=== PATIENT | female | born 1990 | race African-American/Black ===

== ENCOUNTER 2022-10-24 12:52 | Outpatient (REF) | payer MEDICARE, MEDICAID, SELFPAY ==
[2022-10-24 17:48] LABS: Urine Cytology See Pathology rpt
== END 2022-10-24 12:53 | disposition home or self-care (01) ==
LOC: HO.LAB 12:52
PROVIDERS: PCP Hospitalist; Visit Provider Nurse Practitioner Family
DX: R32 Unspecified urinary incontinence (principal)
CPT/HCPCS: 51798; 88112; 99202

== ENCOUNTER 2022-12-05 15:20 | Outpatient (REF) | payer MEDICARE, MEDICAID, SELFPAY ==
--- NOTE | ~2022-12-05 | US_ITS ---
EXAMINATION: US RETROPERITONEAL COMPLETE (RENAL) CLINICAL INFORMATION: Unspecified urinary incontinence. COMPARISON: X-ray abdomen KUB 05/03/2018. TECHNIQUE: Real-time imaging of the kidneys and bladder. Technically limited study secondary to body habitus and limited mobility. FINDINGS: RIGHT KIDNEY: 10.9 x 6.3 x 6.7 cm (SAG x AP x TRV). The kidney is normal in size, contour, and echogenicity. Renal cortical thickness is normal. No calculi or focal parenchymal lesions. No hydronephrosis. LEFT KIDNEY: 9.3 x 5.3 x 5.4 cm (SAG x AP x TRV). The kidney is normal in size, contour, and echogenicity. Renal cortical thickness is normal. No calculi or focal parenchymal lesions. No hydronephrosis. BLADDER: Well distended and normal. Bilateral ureteral jets are demonstrated. Prevoid bladder volume is 312 mL. Postvoid bladder volume is 17.8 mL. US/US retroperitoneal comp IMPRESSION: Unremarkable sonographic imaging of the kidneys and bladder.
== END 2022-12-05 15:21 | disposition home or self-care (01) ==
LOC: HO.US 15:20
PROVIDERS: PCP Hospitalist; Visit Provider Nurse Practitioner Family
DX: R32 Unspecified urinary incontinence (principal); N39.0 Urinary tract infection, site not specified
CPT/HCPCS: 76770

== ENCOUNTER → 2022-12-14 09:43 | Outpatient (BNVA) | payer MEDICARE, MEDICAID, SELFPAY | PROVIDERS: PCP Hospitalist; Visit Provider Nurse Practitioner Family | DX: R32 Unspecified urinary incontinence (principal) | CPT/HCPCS: 51798; 99212 ==

== ENCOUNTER 2023-01-17 11:57 | Outpatient (REF) | payer MEDICARE, MEDICAID, SELFPAY | END 2023-01-17 11:58 | disposition home or self-care (01) | LOC: HO.MAMMO 11:57 | PROVIDERS: Visit Provider Hospitalist | DX: Z13.89 Encounter for screening for other disorder (principal) ==

== ENCOUNTER 2023-08-31 08:51 | Outpatient (AMB) | payer MEDICARE, MEDICAID, SELFPAY ==
--- NOTE | 2023-08-31 09:01 | MHC.OFFVIS ---
Intake Intake Visit Reasons: 6 month follow up Intake Note: Patient is present for PVR/recurrent uti/ urinary incontinence Urology Medications: D/C Oxybutynin Blood Thinner: none PVR: 0ml's Clinical Rehab Specialist Required: No Accompanied by: Unknown Allergies No Known Allergies Allergy (Verified 08/31/23 09:41) Medication List - Last Reconciled 08/31/23 by JOON Saldaña acetaminophen 650 mg PO Q6H PRN atorvastatin 10 mg PO DAILY cholecalciferol (vitamin D3) 50 mcg PO DAILY clozapine (Clozaril) 50 mg PO DAILY diazepam 10 mg PO BID PRN docusate sodium (Dulcolax Stool Softener (docusate)) 100 mg PO BID fluphenazine decanoate mg IM hydroxyzine HCl 50 mg IM ONCE PRN ibuprofen 600 mg PO ONCE PRN lacosamide mg PO lactulose 10 grams PO DAILY levetiracetam 750 mg PO BID levothyroxine 150 mcg PO DAILY lithium carbonate 150 mg PO DAILY lithium carbonate 300 mg PO DAILY loratadine 10 mg PO DAILY lorazepam 2 mg IM DAILY PRN metformin 500 mg PO DAILY mineral oil-isopropyl myristat (Minerin lotion) 1 appl topical TID-QID PRN multivitamin 1 tab PO DAILY paliperidone palmitate (Invega Sustenna) mg IM phenobarbital 64.8 mg PO DAILY sennosides (senna) 8.6 mg PO DAILY PRN sodium phosphates 19-7 gram/118 mL (Fleet Enema) 118 mL [place] DAILY PRN valproic acid (as sodium salt) mg PO HPI HPI Comments History of Present Illness Details Ileana is a pleasant 32-year-old female patient of Dr. Wood who resides at [facility] and is accompanied by rolling machine operator Sruthi today. Patient has a past medical history of schizoaffective bipolar disorder, moderate intellectual disability, epilepsy, diabetes type 2, hypertension, GERD, hyperlipidemia, delusional disorder, and impulse disorder. She presents to the office today for follow-up of urinary incontinence. When asked she reports to be doing and feeling well. She discusses at length her attempt in losing weight. When asked she denies any bothersome urinary issues or concerns. She denies having had any recent incontinent episodes. Previous workup has included a retroperitoneal ultrasound noting bilateral kidneys are normal in size, contour, and echogenicity. No calculi, lesions or hydronephrosis noted bilaterally. Bladder is well distended and normal. Prevoid bladder volume is 312 mL. Postvoid bladder volume 17.8 mL. Unremarkable imaging of the kidneys and bladder. Patient had previously trialed oxybutynin however had no improvement in urinary symptoms in related urinary incontinence to acedia. Discussed and stressed the importance to continue utilizing bathroom when needed/timed scheduled voiding. Discussed and stressed the importance of weight management in relation to urinary incontinence as well as managing diabetes as this could also be contributing to urinary symptoms. She otherwise denies dysuria, flank pain, hematuria, fever, and or chills. In office urinalysis results reviewed with the patient and care worker today. Patient reports she currently has her menses. PVR-0ml's. [facility] Medical History Personal history of (corrected) congenital malformations of heart and circulatory system Unspecified intracranial injury with loss of consciousness of unspecified duration, sequela Slow transit constipation Other insomnia Impulse disorder, unspecified Delusional disorders Other hyperlipidemia Obesity, unspecified Other specified hypothyroidism Other specified disorders of binocular movement Muscle weakness (generalized) Low back pain, unspecified Pain in unspecified knee Disorder of urea cycle metabolism, unspecified Myopia, bilateral Nonscarring hair loss, unspecified Gastro-esophageal reflux disease without esophagitis Essential (primary) hypertension Type 2 diabetes mellitus without complications Headache, unspecified Generalized idiopathic epilepsy and epileptic syndromes, not intractable, without status epilepticus Moderate intellectual disabilities Prader-Willi syndrome Schizoaffective disorder, bipolar type Review of Systems Const Reports as per HPI Eyes Reports no additional complaints ENT Reports no additional complaints Card Reports no additional complaints Resp Reports no additional complaints GI Details: Patient reports issues with constipation and taking medication to assist with this. Reports as per HPI Musc Reports no additional complaints Neuro Details: Patient with a history of epilepsy and moderate intellectual disability Psych Reports as per HPI Endo Reports as per HPI Physical Exam Const General: cooperative, healthy appearing, comfortable, no acute distress, well developed, alert and awake Nutritional Appearance: overweight Orientation/consciousness: patient oriented x3 Limitations: no limitations HEENT Head: Yes normal to inspection, Yes normocephalic and Yes atraumatic Ears: hearing grossly normal bilaterally Neck Neck: Yes normal visual inspection and Yes trachea midline Chest Chest palpation & inspection: normal inspection of the chest Resp Effort & Inspection: normal respiratory effort and able to speak in complete sentences Cardio Rate: regular rate General: Yes no CVA tenderness Back/Spine/Pelvis Back: no CVA tenderness Skin General skin exam: no rashes or lesions noted Neuro General: patient oriented x3 Extrem General: Yes normal to inspection Psych Appearance: grossly normal and well kempt Speech and movement: Clear speech present, Slowed speech present (Psych) and Slowed movement present (Neuro) Affect: Other affect and mood findings present (flat) Attitude: cooperative Insight: Fair insight present (Psych) Judgement: Fair judgement present (Psych) Office Procedures Post Void Residual Post Residual Void Post Void Residual (PVR): 0 91001-[id number] Void Residual by ultrasound Results AMB Urinalysis, Automated UA Leukoctes 15 Jayson/uL Last Edit by [employer] on 08/31/23 09:27 UA Nitrite Negative Last Edit by [employer] on 08/31/23 09:27 UA Urobilinogen 0.2 mg/dL Last Edit by [employer] on 08/31/23 09:27 UA Protein 15 mg/dL Last Edit by [employer] on 08/31/23 09:27 UA pH 6.0 Last Edit by [employer] on 08/31/23 09:27 UA Blood 10 Tomy/uL Last Edit by [employer] on 08/31/23 09:27 UA Specific [place] 1.020 Last Edit by [employer] on 08/31/23 09:27 UA Ketone Positive Last Edit by [employer] on 08/31/23 09:27 UA Bilirubin 0 mg/dL Last Edit by [employer] on 08/31/23 09:27 UA Glucose 0 mg/dL Last Edit by [employer] on 08/31/23 09:27 Results Reviewed Results Reviewed: Laboratory Last Values Urine pH (Auto) 6.0 08/31/23 09:05 Specific [place] (Auto) 1.020 08/31/23 09:05 Urine Protein (Auto) 15 mg/dL 08/31/23 09:05 Glucose (UA)(Auto) 0 mg/dL 08/31/23 09:05 Urine Ketones (Auto) Positive 08/31/23 09:05 Urine Blood (Auto) 10 Tomy/uL 08/31/23 09:05 Urine Nitrite (Auto) Negative 08/31/23 09:05 Urine Bilirubin (Auto) 0 mg/dL 08/31/23 09:05 Urine Urobilinogen (Auto) 0.2 mg/dL 08/31/23 09:05 Leukocyte Esterase (Auto) 15 Jayson/uL 08/31/23 09:05 Assessment & Plan Assessment & Plan (1) Urinary incontinence: Code(s): R32 - Unspecified urinary incontinence Plan In office UA results communicated with patient, care worker, and consultation communication report PVR; 0ml's Discussed behavior modification with timed voiding/scheduled voiding/prompt voiding Discussed weight management and weight loss can assist with urinary symptoms of incontinence Follow up in 6 months with PVR; or sooner with any questions or concerns Orders: Orders AMB Urinalysis Automated Today Z13.9 - Encounter for screening, unspecified AMB Post Void Residual by ultrasound Today N39.0 - Urinary tract infection, site not specified Patient Instructions: The patient had an opportunity to ask questions regarding the treatment plan. All questions were answered. Physical exam, labs, and imaging were discussed and reviewed in detail. As well as risks, benefits, and discussion of treatment choices. No major barriers to understanding were identified. The patient expressed understanding and agreement with the above treatment plan. The patient was made aware they should contact our office by phone for worsening of their current condition, the appearance of new symptoms, or with any questions or concerns. Compliance is encouraged with any medications and follow up testing that is ordered. It is a privilege to be allowed the opportunity to participate in? your urological care.? Again, if you have any questions or concerns If you have any questions or concerns please do not hesitate to contact me. The office is [phone]. This note is constructed using voice recognition software. While every effort has been made to ensure accuracy medicaid biller errors may have been included. Yours sincerely, JOON Saldaña Coding Level of Care Code Est Pt Level 3 (33893) Diagnoses Urinary incontinence R32 CPT Codes Post Residual Void - PVR CPT Code: 89675-Djjx Void Residual by ultrasound ([id number])
== END 2023-08-31 09:50 | disposition home or self-care (01) ==
PROVIDERS: PCP Hospitalist; Visit Provider Nurse Practitioner Family
DX: Z13.9 Encounter for screening, unspecified (principal); R32 Unspecified urinary incontinence
CPT/HCPCS: 99213

== ENCOUNTER → 2023-08-31 08:51 | Outpatient (BNVA) | payer MEDICARE, MEDICAID, SELFPAY | PROVIDERS: PCP Hospitalist; Visit Provider Nurse Practitioner Family | DX: R32 Unspecified urinary incontinence (principal) | CPT/HCPCS: 51798; 81003; 99212 ==

== ENCOUNTER → 2024-03-03 09:33 | Outpatient (BNVA) | payer MEDICARE, MEDICAID, SELFPAY | PROVIDERS: PCP Hospitalist; Visit Provider Nurse Practitioner Family ==

== ENCOUNTER 2024-03-12 08:21 | Outpatient (REF) | payer MEDICARE, MEDICAID, SELFPAY ==
--- NOTE | ~2024-03-12 | CT_ITS ---
EXAMINATION: CT HEAD WITH/WITHOUT CONTRAST CLINICAL INFORMATION: Epilepsy. Brain tumor. COMPARISON: MR brain 03/19/2006. TECHNIQUE: Contiguous axial imaging was performed from the skull base to vertex before and after the administration of 100 mL of Omnipaque [address] examination was performed using dose optimization techniques as appropriate, variously including the following: *Automated exposure control *Adjustment of mA and/or kV according to patient size (this includes techniques or standardized protocols for targeted exams where dose is matched to indication/reason for exam; i.e. extremities or head) *Use of iterative reconstruction technique DLP: 1916 mGy-cm FINDINGS: There are chronic changes of a left craniotomy and there is a surgical cavity within the left frontal lobe. Postcontrast images reveal no abnormal mass or nodular enhancement at the margins of the surgical cavity.. There is no abnormal enhancement visualized elsewhere within the intracranial compartment. No intracranial mass effect or midline shift. Lateral and third ventricles are normal. No hydrocephalus. The calvarium and skull base are grossly intact. No mastoid or middle ear effusion. No active paranasal sinus disease. Globes and orbits are symmetric. CT/CT head/brain wo/w IV con IMPRESSION: There are chronic changes of a left craniotomy and there is a surgical cavity within the left frontal lobe. No abnormal mass or nodular enhancement at the margins of the surgical cavity. No abnormal enhancement is visualized elsewhere within the intracranial compartment.
[2024-03-12] MEDS: iohexoL 350 MG/ML 100 ML INFUS..BTL 85 ML IV (09:21)
== END 2024-03-12 08:22 | disposition home or self-care (01) ==
LOC: HO.CT 08:21
PROVIDERS: PCP Hospitalist; Visit Provider Psychiatry & Neurology Neurology
DX: G40.909 Epilepsy, unspecified, not intractable, without status epilepticus (principal); D49.6 Neoplasm of unspecified behavior of brain
CPT/HCPCS: 70470; Q9967

== ENCOUNTER 2024-05-21 13:17 | Outpatient (AMB) | payer MEDICARE, MEDICAID, SELFPAY ==
--- NOTE | 2024-05-21 13:22 | MHC.OFFVIS ---
Intake Visit Reasons: 6M/ PVR Intake Note: Patient is present for PVR/recurrent uti/ urinary incontinence Urology Medications: none Blood Thinner: none PVR: 0ml's Auto Body Worker Required: No Accompanied by: [facility] worker Allergies No Known Allergies Allergy (Verified 05/21/24 14:01) Medication List - Last Reconciled 05/21/24 by JOON Saldaña acetaminophen 650 mg PO Q6H PRN atorvastatin 10 mg PO DAILY cholecalciferol (vitamin D3) 50 mcg PO DAILY clozapine (Clozaril) 50 mg PO DAILY diazepam 10 mg PO BID PRN docusate sodium (Dulcolax Stool Softener (docusate)) 100 mg PO BID fluphenazine decanoate mg IM hydroxyzine HCl 50 mg IM ONCE PRN ibuprofen 600 mg PO ONCE PRN lacosamide mg PO lactulose 10 grams PO DAILY levetiracetam 750 mg PO BID levothyroxine 150 mcg PO DAILY lithium carbonate 150 mg PO DAILY lithium carbonate 300 mg PO DAILY loratadine 10 mg PO DAILY lorazepam 2 mg IM DAILY PRN metformin 500 mg PO DAILY mineral oil-isopropyl myristat (Minerin lotion) 1 appl topical TID-QID PRN multivitamin 1 tab PO DAILY paliperidone palmitate (Invega Sustenna) mg IM phenobarbital 64.8 mg PO DAILY sennosides (senna) 8.6 mg PO DAILY PRN sodium phosphates 19-7 gram/118 mL (Fleet Enema) 118 mL [place] DAILY PRN valproic acid (as sodium salt) mg PO HPI Comments Details: Ileana is a pleasant 33-year-old female patient of Dr. Wood who resides at [facility] and is accompanied by signal inspector Sruthi white. Patient has a past medical history of schizoaffective bipolar disorder, moderate intellectual disability, epilepsy, diabetes type 2, hypertension, GERD, hyperlipidemia, delusional disorder, and impulse disorder. She presents to the office today for follow-up of urinary incontinence. When asked she reports to be doing and feeling well. She reports since her last office visit here approximately 6 months ago she has had no bothersome urinary issues or concerns. She denies having had any recent incontinent episodes. Previous workup has included a retroperitoneal ultrasound noting bilateral kidneys are normal in size, contour, and echogenicity. No calculi, lesions or hydronephrosis noted bilaterally. Bladder is well distended and normal. Prevoid bladder volume is 312 mL. Postvoid bladder volume 17.8 mL. Unremarkable imaging of the kidneys and bladder. Discussed and stressed the importance to continue utilizing bathroom when needed/timed scheduled voiding. Discussed and stressed the importance of weight management in relation to urinary incontinence as well as managing diabetes as this could also be contributing to urinary symptoms. She otherwise denies dysuria, flank pain, hematuria, fever, and or chills. In office urinalysis results reviewed with the patient and care worker today. PVR-0ml's. [facility] Medical History Personal history of (corrected) congenital malformations of heart and circulatory system Unspecified intracranial injury with loss of consciousness of unspecified duration, sequela Slow transit constipation Other insomnia Impulse disorder, unspecified Delusional disorders Other hyperlipidemia Obesity, unspecified Other specified hypothyroidism Other specified disorders of binocular movement Muscle weakness (generalized) Low back pain, unspecified Pain in unspecified knee Disorder of urea cycle metabolism, unspecified Myopia, bilateral Nonscarring hair loss, unspecified Gastro-esophageal reflux disease without esophagitis Essential (primary) hypertension Type 2 diabetes mellitus without complications Headache, unspecified Generalized idiopathic epilepsy and epileptic syndromes, not intractable, without status epilepticus Moderate intellectual disabilities Prader-Willi syndrome Schizoaffective disorder, bipolar type Review of Systems Const Reports as per HPI Eyes Reports no additional complaints ENT Reports no additional complaints Card Reports no additional complaints Resp Reports no additional complaints GI Details: Patient reports issues with constipation and taking medication to assist with this. Reports as per HPI Musc Reports no additional complaints Neuro Details: Patient with a history of epilepsy and moderate intellectual disability Psych Reports as per HPI Endo Reports as per HPI Physical Exam Const General: cooperative, healthy appearing, comfortable, no acute distress, well developed, alert and awake Nutritional Appearance: overweight Orientation/consciousness: patient oriented x3 Limitations: no limitations HEENT Head: Yes normal to inspection, Yes normocephalic and Yes atraumatic Ears: hearing grossly normal bilaterally Neck Neck: Yes normal visual inspection and Yes trachea midline Chest Chest palpation & inspection: normal inspection of the chest Resp Effort & Inspection: normal respiratory effort and able to speak in complete sentences Cardio Rate: regular rate General: Yes no CVA tenderness Back/Spine/Pelvis Back: no CVA tenderness Skin General skin exam: no rashes or lesions noted Neuro General: patient oriented x3 Extrem General: Yes normal to inspection Psych Appearance: grossly normal and well kempt Speech and movement: Clear speech present, Slowed speech present (Psych) and Slowed movement present (Neuro) Affect: Other affect and mood findings present (flat) Attitude: cooperative Insight: Fair insight present (Psych) Judgement: Fair judgement present (Psych) Office Procedures Post Void Residual Post Residual Void Post Void Residual (PVR): 0 [id number] Void Residual by ultrasound Results AMB Urinalysis, Automated UA Leukoctes 0 Jayson/uL Last Edit by [employer] on 05/21/24 13:41 UA Nitrite Last Edit by [employer] on 05/21/24 13:41 UA Urobilinogen 0.2 mg/dL Last Edit by [employer] on 05/21/24 13:41 UA Protein 0 mg/dL Last Edit by [employer] on 05/21/24 13:41 UA pH 15 Last Edit by [employer] on 05/21/24 13:41 UA Blood 10 Tomy/uL Last Edit by [employer] on 05/21/24 13:41 UA Specific [place] 1.015 Last Edit by [employer] on 05/21/24 13:41 UA Ketone Last Edit by [employer] on 05/21/24 13:41 UA Bilirubin 0 mg/dL Last Edit by [employer] on 05/21/24 13:41 UA Glucose 0 mg/dL Last Edit by [facility] on 05/21/24 13:41 Results Reviewed Results Reviewed: Laboratory Last Values Urine pH (Auto) 15 05/21/24 13:39 Specific [place] (Auto) 1.015 05/21/24 13:39 Urine Protein (Auto) 0 mg/dL 05/21/24 13:39 Glucose (UA)(Auto) 0 mg/dL 05/21/24 13:39 Urine Blood (Auto) 10 Tomy/uL 05/21/24 13:39 Urine Bilirubin (Auto) 0 mg/dL 05/21/24 13:39 Urine Urobilinogen (Auto) 0.2 mg/dL 05/21/24 13:39 Leukocyte Esterase (Auto) 0 Jayson/uL 05/21/24 13:39 Assessment & Plan Assessment & Plan (1) Urinary incontinence: Code(s): R32 - Unspecified urinary incontinence Category: Medical Plan In office UA results communicated with patient, care worker, and consultation communication report PVR; 0ml's Discussed behavior modification with timed voiding/scheduled voiding/prompt voiding Discussed weight management and weight loss can assist with urinary symptoms of incontinence. Discussed and stressed the importance of managing diabetes for improvement lower urinary tract symptoms as well as overall health and well-being. Follow up in one year with PVR; or sooner with any questions or concerns Orders: Orders AMB Urinalysis Automated Today Z13.9 - Encounter for screening, unspecified AMB Post Void Residual by ultrasound Today R32 - Unspecified urinary incontinence Patient Instructions: The patient had an opportunity to ask questions regarding the treatment plan. All questions were answered. Physical exam, labs, and imaging were discussed and reviewed in detail. As well as risks, benefits, and discussion of treatment choices. No major barriers to understanding were identified. The patient expressed understanding and agreement with the above treatment plan. The patient was made aware they should contact our office by phone for worsening of their current condition, the appearance of new symptoms, or with any questions or concerns. Compliance is encouraged with any medications and follow up testing that is ordered. It is a privilege to be allowed the opportunity to participate in? your urological care.? Again, if you have any questions or concerns If you have any questions or concerns please do not hesitate to contact me. The office is [phone]. This note is constructed using voice recognition software. While every effort has been made to ensure accuracy weed controller errors may have been included. Yours sincerely, JOON Saldaña Coding Level of Care Code Est Pt Level 3 (84201) Complex EM visit Add On G2211 Diagnoses Urinary incontinence R32 CPT Codes Post Residual Void - PVR CPT Code: 54199-Nduw Void Residual by ultrasound ([id number])
== END 2024-05-21 13:55 | disposition home or self-care (01) ==
PROVIDERS: PCP Hospitalist; Visit Provider Nurse Practitioner Family
DX: R32 Unspecified urinary incontinence (principal); Z13.9 Encounter for screening, unspecified
CPT/HCPCS: 99213; G2211

== ENCOUNTER → 2024-05-21 13:17 | Outpatient (BNVA) | payer MEDICARE, MEDICAID, SELFPAY | PROVIDERS: PCP Hospitalist; Visit Provider Nurse Practitioner Family | DX: R32 Unspecified urinary incontinence (principal); E11.9 Type 2 diabetes mellitus without complications | CPT/HCPCS: 51798; 81003; 99212 ==

== ENCOUNTER 2025-07-31 10:29 | Outpatient (AMB) | payer MEDICARE, MEDICAID, SELFPAY ==
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
== END 2025-07-31 11:01 | disposition home or self-care (01) ==
LOC: HO.HSM 10:29
PROVIDERS: Visit Provider Registered Nurse
DX: G40.909 Epilepsy, unspecified, not intractable, without status epilepticus (principal); D49.6 Neoplasm of unspecified behavior of brain; G21.19 Other drug induced secondary parkinsonism; F25.9 Schizoaffective disorder, unspecified
CPT/HCPCS: 99214

== ENCOUNTER → 2025-07-31 10:29 | Outpatient (BNVA) | payer MEDICARE, MEDICAID, SELFPAY | PROVIDERS: Visit Provider Registered Nurse | DX: G40.309 Generalized idiopathic epilepsy and epileptic syndromes, not intractable, without status epilepticus (principal); D49.6 Neoplasm of unspecified behavior of brain; G21.19 Other drug induced secondary parkinsonism; F25.9 Schizoaffective disorder, unspecified | CPT/HCPCS: 99212 ==